=== PATIENT | female | born 1985 | race Caucasian/White ===

== ENCOUNTER 2021-04-21 08:31 | Inpatient (IN) | payer OTHER ==
[2021-04-21 09:44] VITALS: BMI 31.4
[2021-04-21] MEDS ORDERED: ELECTROLYTE-148 SOLN 1,000 ML IV ONE (10:00)
[2021-04-21] MEDS ORDERED: CITRIC ACID/SODIUM CITRATE 30 ML UNIT-DOSE CUP PO ONE (10:00)
[2021-04-21] MEDS ORDERED: ELECTROLYTE-148 SOLN 1,000 ML IV SCH ×2 (10:00→10:45)
[2021-04-21] MEDS ORDERED: ePHEDrine SULFATE 50 MG/1 ML AMPULE ONE (10:08)
[2021-04-21] MEDS ORDERED: PROPOFOL 20 ML ONE ×2 (10:09)
[2021-04-21] MEDS ORDERED: morphine SULFATE/PF 0.5 MG/ML (2cc Syringe - QUVA) ONE (10:29)
[2021-04-21] MEDS ORDERED: PHENYLEPHRINE HCL 10 MG/1 ML SINGLE DOSE VIAL ONE (10:29)
[2021-04-21] MEDS ORDERED: OXYTOCIN 20 UNITS in 0.9% NS 20 UNIT/1,000 ML INFUS.BAG IV ONE ×2 (10:32→13:19)
[2021-04-21] MEDS ORDERED: ONDANSETRON 4 MG/2 ML VIAL ONE (10:37)
[2021-04-21] MEDS ORDERED: SENNOSIDES/DOCUSATE COMBO (SENNA PLUS) TABLET (UD) PO PRN (10:41)
[2021-04-21] MEDS ORDERED: ceFAZolin SODIUM 1 GM VIAL ONE (10:41)
[2021-04-21] MEDS ORDERED: METHYLERGONOVINE MALEATE 0.2 MG/1 ML AMP IM PRN (10:41)
[2021-04-21] MEDS ORDERED: WITCH HAZEL 50% (TUCKS) 40 PAD/JAR PAD TP PRN (10:41)
[2021-04-21] MEDS ORDERED: OXYTOCIN 20 UNITS in 0.9% NS 20 UNIT/1,000 ML INFUS.BAG IV SCH (10:45)
[2021-04-21] MEDS ORDERED: ONDANSETRON 4 MG/2 ML VIAL IVPUSH PRN (11:10)
[2021-04-21 11:32] LABS: CORD BASE EXCESS -1.5 mmol/L (0-2); CORD HCO3 24.7 mmHg (20-29); CORD pH 7.339 (7.14-7.44)
[2021-04-21 11:36] LABS: CORD HCO3 25.2 mmHg (20-29); CORD PCO2 57.9 mmHg (30-78); CORD pH 7.256 (7.14-7.44)
[2021-04-21] MEDS ORDERED: ACETAMINOPHEN INJECTION 100 ML IVPB ONE (13:19)
[2021-04-21] MEDS: ACETAMINOPHEN 1000 MG/100 ML VIAL (NON FORMULARY) IVPB PRN (13:31)
[2021-04-21] MEDS: ACETAMINOPHEN 325 MG TABLET (FP) PO PRN (19:12)
[2021-04-21] MEDS: FERROUS SO4 325 MG TABLET (FP) PO SCH (22:30)
[2021-04-22] MEDS: ACETAMINOPHEN 1000 MG/100 ML VIAL (NON FORMULARY) IVPB PRN (04:05)
[2021-04-22 09:00] LABS: BASO % 1.3 % (0-2.0); EOS % 0.6 % (0-4.5); HEMATOCRIT 29.3 % (32.4-45.2); HEMOGLOBIN 9.7 GM/dL (10.7-15.3); LYMPH % 14.1 % (8-40); MCH 27.7 pg (25.7-33.7); MCHC 33.2 g/dl (32.0-36.0); MEAN CELL VOLUME 83.4 fl (80-96); MEAN PLT VOLUME 10.8 fl (7.5-11.1); MONO % 6.2 % (3.8-10.2); NEUT % 77.8 % (42.8-82.8); PLATELET COUNT 189 10^3/uL (134-434); RBC 3.52 M/mm3 (3.60-5.2); RDW 13.6 % (11.6-15.6); WHITE BLOOD COUNT 10.2 K/mm3 (4.0-10.0)
[2021-04-22] MEDS: FERROUS SO4 325 MG TABLET (FP) PO SCH ×2 (09:17→20:59)
[2021-04-22] MEDS: PRENATAL VITAMINS W/ FOLIC ACID TABLET (FP) PO SCH (09:17)
[2021-04-22] MEDS: SIMETHICONE 80 MG TAB.CHEW (FP) PO PRN ×2 (09:22→20:55)
[2021-04-22] MEDS ORDERED: BISACODYL 10 MG SUPP.RECT RC PRN (10:41)
[2021-04-22] MEDS: ACETAMINOPHEN 325 MG TABLET (FP) PO PRN (20:55)
[2021-04-23] MEDS: oxyCODONE HCL 5 MG TABLET PO PRN ×2 (08:44→18:28)
[2021-04-23] MEDS: SIMETHICONE 80 MG TAB.CHEW (FP) PO PRN ×2 (08:45→18:28)
[2021-04-23] MEDS: ACETAMINOPHEN 325 MG TABLET (FP) PO PRN ×2 (08:45→18:28)
[2021-04-23] MEDS: PRENATAL VITAMINS W/ FOLIC ACID TABLET (FP) PO SCH (11:12)
[2021-04-23] MEDS: FERROUS SO4 325 MG TABLET (FP) PO SCH ×2 (11:12→21:07)
[2021-04-24 09:05] LABS: BASO % 0.4 % (0-2.0); EOS % 2.9 % (0-4.5); HEMATOCRIT 31.6 % (32.4-45.2); HEMOGLOBIN 10.6 GM/dL (10.7-15.3); MCH 28.1 pg (25.7-33.7); MCHC 33.6 g/dl (32.0-36.0); MEAN CELL VOLUME 83.6 fl (80-96); MEAN PLT VOLUME 10.4 fl (7.5-11.1); MONO % 5.6 % (3.8-10.2); NEUT % 72.1 % (42.8-82.8); PLATELET COUNT 251 10^3/uL (134-434); RBC 3.79 M/mm3 (3.60-5.2); RDW 14.3 % (11.6-15.6); WHITE BLOOD COUNT 10.7 K/mm3 (4.0-10.0)
[2021-04-24 09:11] VITALS: BP 105/63; PULSE 90; TEMP 98.3
[2021-04-24] MEDS: FERROUS SO4 325 MG TABLET (FP) PO SCH (09:46)
[2021-04-24] MEDS: PRENATAL VITAMINS W/ FOLIC ACID TABLET (FP) PO SCH (09:46)
== END 2021-04-24 12:10 | disposition home or self-care (01) | DRG 540 ==
LOC: JDEL 08:31 → JLDR 08:40 → J3W 13:30
PROVIDERS: ADMIT Obstetrics & Gynecology; ATTEND Obstetrics & Gynecology
PROC: 10D00Z1 Extraction of Products of Conception, Low, Open Approach (ICD-10-PCS; principal; 2021-04-22)
DX: O34.219 Maternal care for unspecified type scar from previous cesarean delivery (principal); Z37.0 Single live birth; O99.214 Obesity complicating childbirth; E66.9 Obesity, unspecified; Z3A.39 39 weeks gestation of pregnancy
CPT/HCPCS: 36415; 36600; 59025; 76819-TC; 80048; 82803; 83986-QW; 85025; 85610; 85730; 86780; 86850; 86900; 86901; 87389; 88307-TC; C9803; J0131; U0003; U0005